=== PATIENT | female | born 1990 | race Caucasian/White ===

== ENCOUNTER 2017-01-08 11:40 | Emergency (ER) | payer OTHER, MEDICAID ==
[~2017-01-08 11:40] MED LIST: ACID REFLUX PO; ADULT LOW DOSE81 M1 PO; AMBIEN10 M1 PO; BIRTH CONTROL MED PO; DULCOLAX10 MG RC; ESCITALOPRAM OX20 M1 PO; HYDROCODON-ACE1 EA16 PO; HYDROCODON-ACE1 EA19; IBUPROFEN800 M1 PO; LORTAB 5-325 M1 EAC1 PO; MAPAP500 M2 PO; PRENATAL VITAM1 EAC7 PO; ZANTAC150 M1 PO
== END 2017-01-08 14:00 ==
LOC: EDMED 11:40
DX: S00.83XA Contusion of other part of head, initial encounter (principal); V49.40XA Driver injured in collision with unspecified motor vehicles in traffic accident, initial encounter